=== PATIENT | female | born 1965 | race Caucasian/White ===

== ENCOUNTER 2016-11-30 21:37 | Emergency (ER) | payer OTHER ==
[2016-11-30 22:06] VITALS: RESP 18; TEMP 98.4; O2SAT 96
[2016-11-30] MEDS ORDERED: valACYclovir 500 MG TAB PO ONE (22:11)
[2016-11-30] MEDS ORDERED: predniSONE 20 MG TAB PO ONE (22:11)
--- NOTE | 2016-11-30 22:11 | UCPHY ---
H & P Time Seen by Provider: 11/30/16 21:59 Patient Type: Established HPI/ROS: HPI Left-sided facial paralysis. 51-year-old female by private vehicle. She presents with isolated left upper and lower facial paralysis since 6:30 p.m. this evening. No prior history of Jackson's palsy. No headache. No changes in vision. No other complaint. She reports inability to close her left eye completely. ROS: Constitutional: No fever, no chills. No weakness. Eyes: No discharge. No changes in vision. As above. ENT: No sore throat. No nasal congestion or rhinorrhea. Respiratory: No cough. No shortness of breath. Cardiac: No chest pain, no palpitations. Gastrointestinal: No abdominal pain, no vomiting, no diarrhea. Musculoskeletal: No back pain. No neck pain. No myalgias or arthralgias. Skin: No rashes. Neurological: No headache. As above. Past medical history: Anxiety. Hypertension. She is supposed to be on HCTZ but she does not currently take this medication. She is a [facility] client. Primary care physician is Dr. Tena. Social history: Smoker. No alcohol. Physical Exam: General Appearance: Alert, no distress. This patient is responding to questions appropriately and in full sentences. This patient appears well- hydrated and well-nourished. Eyes: Pupils equal and round no pallor or injection. No lid edema, erythema or injection. ENT, Mouth: Mucous membranes are moist. The pharyngeal tissues are unremarkable. No edema or swelling. No asymmetry suggestive of abscess. No erythema or exudates. Neurological: Motor sensory function is grossly intact except noted. Left- sided upper and lower facial droop/facial nerve palsy. Cranial nerves are otherwise normal. Skin: Warm and dry, no rashes. Musculoskeletal: Neck is supple and nontender. Extremities are symmetrical. All joints range without pain or impingement. Psychiatric: No agitation. No depression. Database: EKG: Imaging: Procedures: Emergency department course: Patient given 800 mg of acyclovir at urgent care an 80 mg of prednisone. Plan will be to prescribe her valacyclovir, 1000 mg three times daily, prednisone 60 mg per day for 7 days. We will also treat with artificial tears in patching of the left eye at night. She will follow up with her primary care physician for re-evaluation in the next 1-2 days. She feels comfortable going home and I feel she is safe for discharge. Follow-up and return to emergency department precautions were reviewed with her. All of her questions were answered. She was discharged in good condition. Differential Diagnosis: The differential diagnosis on this patient includes but is not limited to Jackson' s palsy. CVA unlikely. This represents a partial list of diagnoses considered. These considerations are based on history, physical exam, past history, reassessment and diagnostic testing. Smoking Status: Current every day smoker Constitutional: Initial Vital Signs Temperature (C) 36.9 C 11/30/16 22:03 Heart Rate 100 11/30/16 22:03 Respiratory Rate 18 11/30/16 22:03 Blood Pressure 195/124 H 11/30/16 22:03 O2 Sat (%) 96 11/30/16 22:03 O2 Delivery Mode Room Air Allergies/Adverse Reactions: Penicillins Allergy (Verified 11/30/16 22:07) Home Medications: Medication Instructions Recorded Alprazolam 08/13/15 HCTZ (*) 11/30/16 Valacyclovir HCl [Valtrex] 1,000 mg PO TID #21 tab 11/30/16 predniSONE [prednisone 20mg (RX)] 60 mg PO DAILY #10 tab 11/30/16 Departure - Departure Disposition: Home, Routine, Self-Care Clinical Impression: Jackson's palsy, Hypertension Condition: Good Instructions: Jackson Palsy (ED) Additional Instructions: Read and follow provided instructions. Follow-up with your primary care physician in 1-2 days for re-evaluation. Take medication as prescribed through entire course of treatment. Artificial tears to left eye; 2 drops to left eye every hour while awake. As discussed, patch your left eye closed at night. This is very important so that your cornea does not dry out. Return to the emergency department for worsening symptoms or other serious concerns. Referrals: Barbara tGz MD [Medical Doctor] - As per Instructions Prescriptions: predniSONE [prednisone 20mg (RX)] 60 mg PO DAILY #10 tab Valacyclovir HCl [Valtrex] 1,000 mg PO TID #21 tab - PQRS PQRS Measurement: Not applicable.
[2016-11-30] MEDS ORDERED: ACYCLOVIR 400 MG PREPACK#4 BTL TAKEHOME ONE ×2 (22:18→22:33)
[2016-11-30] MEDS ORDERED: predniSONE 20 MG TAB ONE (22:25)
[2016-11-30] MEDS ORDERED: TEARS/DEXTRAN 70/HYPROMELLOSE 15 ML OPHT.BTL ONE (22:26)
[2016-11-30] MEDS ORDERED: TEARS/DEXTRAN 70/HYPROMELLOSE 15 ML OPHT.BTL LEFTEYE PRN (22:33)
[2016-11-30] MEDS ORDERED: TEARS/DEXTRAN 70/HYPROMELLOSE 15 ML OPHT.BTL LEFTEYE ONE (22:33)
[2016-11-30 23:47] VITALS: BP 164/105; PULSE 85
== END 2016-11-30 22:53 | disposition home or self-care (01) ==
LOC: CED 21:37
DX: G51.0 Bell's palsy (principal); I10 Essential (primary) hypertension; Z72.0 Tobacco use
CPT/HCPCS: G0463-PO